=== PATIENT | female | born 1960 | race Caucasian/White ===

== ENCOUNTER → 2018-11-19 | Outpatient (CLI) | payer OTHER ==
[~2018-11-19] MED LIST: ACET-1966 PO; ALOE25CA PO; ALPR-429 PO; CHOL500045 PO; CYAN250013; DOCU-416 PO; FAMO20TA28 PO; GUAI1200 PO; IBUP-136 PO; LEVO-3 PO; LORA1TAB69 PO; MAGN500C10 PO; SELE200T32 PO; ZINC50TA43 PO; ZOLP-350 PO
== END ==
LOC: LAB 13:52
PROVIDERS: ATTEND Otolaryngology
DX: E03.9 Hypothyroidism, unspecified (principal)
CPT/HCPCS: 36415; 84439; 84443

== ENCOUNTER → 2019-02-10 | Outpatient (CLI) | payer OTHER ==
[~2019-02-10] MED LIST changes: +CEFPR500PT PO; +CLIN300C99 PO; +LEVO500T83 PO; +METH4TAB66 PO; +OMEP-126 PO; +OMEP40CA48 PO
== END ==
LOC: LAB 15:54
PROVIDERS: ATTEND Physician Assistant
DX: G47.00 Insomnia, unspecified (principal)
CPT/HCPCS: 36415; 84443